=== PATIENT | female | born 2000 | race Caucasian/White ===

== ENCOUNTER → 2020-09-18 11:33 | Outpatient (CLI) | payer OTHER, SELFPAY ==
[2020-09-18 12:20] LABS: Add Manual Diff / Slide Review NO; Basophils Absolute Auto 0 /uL (0-100); Basophils Percent Auto 0.5 % (0-2); Eosinophils Absolute Auto 100 /uL (0-450); Eosinophils Percent Auto 1.6 % (2-4); Hematocrit 40.9 % (36-46); Hemoglobin 13.7 g/dL (12.0-16.0); Lymphocytes Absolute Auto 1600 /uL (1100-4500); Lymphocytes Percent Auto 27.9 % (25-40); Mean Corpuscular HGB Conc 33.6 % (30-36); Mean Corpuscular Hemoglobin 30.9 PG (26-34); Monocytes Absolute Auto 400 /uL (0-900); Monocytes Percent Auto 7.8 % (3-14); Neutrophils Absolute Auto 3500 /uL (1500-7000); Neutrophils Percent Auto 62.2 % (50-75); Platelet Count 193 X10^3/uL (150-400); Red Blood Cell Count 4.45 X10^6/uL (4.0-5.2); Red Cell Distribution Width 13.1 % (11.6-14.8); White Blood Cell Count 5.6 X10^3/uL (4.5-11.0)
[2020-09-18 12:27] LABS: Hemoglobin A1C% w Est Avg Glu 4.9 % (4.0-6.0)
[2020-09-18 12:35] LABS: Alanine Aminotransferase 18 IU/L (<35); Albumin 3.8 g/dL (3.5-5.0); Albumin Globulin Ratio 1.3 (1.0-2.8); Alkaline Phosphatase 51 U/L (38-126); Aspartate Aminotransferase 25 IU/L (14-36); BUN Creatinine Ratio 14.3 (6-22); Bilirubin Total 0.3 mg/dL (0.2-1.3); Blood Urea Nitrogen 10 mg/dL (7-17); Calcium 8.8 mg/dL (8.4-10.2); Carbon Dioxide 24 mmol/L (22-32); Chloride 107 mmol/L (98-107); Estimated Glomerular Filt Rate > 60.0 mL/min (>60); Glucose 90 mg/dL (70-100); HEMOLYSIS < 15 (0-50); Potassium 3.9 mmol/L (3.4-5.1); Sodium 138 mmol/L (137-145); Total Protein 6.8 g/dL (6.3-8.2)
[2020-09-18 12:50] LABS: Free T4, Direct Thyroxine 1.02 ng/dL (0.78-2.19)
[2020-09-18 13:04] LABS: Thyroid Stimulating Hormone 0.637 uIU/mL (0.47-4.68)
== END ==
PROVIDERS: PCP Registered Nurse; Referring Provider Registered Nurse; Visit Provider Registered Nurse
DX: R53.83 Other fatigue (principal); Z83.3 Family history of diabetes mellitus
CPT/HCPCS: 36415; 80053; 83036; 84439; 84443; 85025

== ENCOUNTER → 2022-05-23 06:21 | Outpatient (ROUT) | payer OTHER, SELFPAY ==
[2022-05-23 06:29] LABS: Hematocrit 40.4 % (36-46); Hemoglobin 13.7 g/dL (12.0-16.0); Mean Corpuscular HGB Conc 33.9 % (30-36); Mean Corpuscular Hemoglobin 29.8 PG (26-34); Mean Corpuscular Volume 87.9 fL (80-100); Platelet Count 257 X10^3/uL (150-400); Red Cell Distribution Width 13.5 % (11.6-14.8); White Blood Cell Count 9.7 X10^3/uL (4.5-11.0)
[2022-05-23 06:48] LABS: Alanine Aminotransferase 15 IU/L (<35); Albumin 4.5 g/dL (3.5-5.0); Albumin Globulin Ratio 1.2 (1.0-2.8); Alkaline Phosphatase 65 U/L (38-126); Aspartate Aminotransferase 23 IU/L (14-36); BUN Creatinine Ratio 17.9 (6-22); Bilirubin Total 0.4 mg/dL (0.2-1.3); Blood Urea Nitrogen 14 mg/dL (7-17); Carbon Dioxide 24 mmol/L (22-32); Chloride 103 mmol/L (98-107); Cholesterol 141 mg/dL (140-199); Estimated Glomerular Filt Rate > 60 mL/min (>60); Globulin 3.7 g/dL (1.7-4.1); Glucose 94 mg/dL (70-100); HDL Cholesterol 47 mg/dL (40-60); HEMOLYSIS < 15 (0-50); LDL Cholesterol Calculated 79 mg/dL (<100); Potassium 3.7 mmol/L (3.4-5.1); Sodium 139 mmol/L (137-145); Total Protein 8.2 g/dL (6.3-8.2); Triglycerides 74 mg/dL (35-150)
[2022-05-23 07:19] LABS: TSH w/ Reflex to FT4 1.37 uIU/mL (0.47-4.68)
== END ==
PROVIDERS: PCP Registered Nurse Diabetes Educator; Visit Provider Registered Nurse Diabetes Educator
DX: Z00.00 Encounter for general adult medical examination without abnormal findings (principal)
CPT/HCPCS: 80053; 80061; 84443; 85027

== ENCOUNTER → 2022-12-22 09:12 | Outpatient (CLI) | payer OTHER, SELFPAY ==
[2022-12-22 12:59] LABS: Urine N gonorrhoeae NOT DETECTED
[2022-12-22 13:36] LABS: Urine Chlamydia NOT DETECTED
== END ==
PROVIDERS: PCP Registered Nurse Diabetes Educator; Visit Provider Specialist
DX: Z34.01 Encounter for supervision of normal first pregnancy, first trimester (principal)
CPT/HCPCS: 87491; 87591

== ENCOUNTER → 2023-01-19 10:05 | Outpatient (CLI) | payer OTHER, SELFPAY ==
[2023-01-19 10:28] LABS: Specimen Label Y
[2023-01-19 11:06] LABS: Add Manual Diff / Slide Review NO; Basophils Absolute Auto 0 /uL (0-100); Basophils Percent Auto 0.1 % (0-2); Eosinophils Absolute Auto 0 /uL (0-450); Eosinophils Percent Auto 0.5 % (2-4); Hematocrit 40.1 % (36-46); Hemoglobin 13.9 g/dL (12.0-16.0); Lymphocytes Absolute Auto 1100 /uL (1100-4500); Lymphocytes Percent Auto 12.5 % (25-40); Mean Corpuscular HGB Conc 34.6 % (30-36); Mean Corpuscular Hemoglobin 31.1 PG (26-34); Mean Corpuscular Volume 89.9 fL (80-100); Monocytes Absolute Auto 800 /uL (0-900); Monocytes Percent Auto 9.2 % (3-14); Neutrophils Absolute Auto 7100 /uL (1500-7000); Neutrophils Percent Auto 77.7 % (50-75); Platelet Count 172 X10^3/uL (150-400); Red Blood Cell Count 4.46 X10^6/uL (4.0-5.2); White Blood Cell Count 9.1 X10^3/uL (4.5-11.0)
[2023-01-19 11:51] LABS: Hepatitis B Surface Antigen NEGATIVE s/c (NEGATIVE); Rubella Antibody IgG 5.1 IU/mL (>15)
[2023-01-19 12:09] LABS: HIV 1 & 2 Ab/Ag 4th Gen Combo NEGATIVE (NEGATIVE); Hep C Virus Ab w/Reflex Quant NEGATIVE s/c (NEGATIVE)
[2023-01-20 06:20] LABS: RPR Screen Non Reactive (Non Reactive)
[2023-01-20 08:41] LABS: Varicella IgG Antibody 819 index (Immune >165)
== END ==
PROVIDERS: PCP Registered Nurse Diabetes Educator; Referring Provider Specialist; Visit Provider Specialist
DX: Z34.01 Encounter for supervision of normal first pregnancy, first trimester (principal)
CPT/HCPCS: 36415; 80055; 86787; 86803; 86850; 86900; 86901; 87389

== ENCOUNTER → 2023-01-24 03:56 | Outpatient (ROUT) | payer OTHER, SELFPAY | PROVIDERS: PCP Registered Nurse Diabetes Educator; Visit Provider Registered Nurse Diabetes Educator | DX: Z34.01 Encounter for supervision of normal first pregnancy, first trimester (principal) | CPT/HCPCS: 87086 ==

== ENCOUNTER → 2023-03-16 06:55 | Outpatient (CLI) | payer OTHER, SELFPAY ==
--- NOTE | 2023-03-16 06:56 | DI.US.S_ITS ---
PROCEDURE: US OB >= 14 WEEKS FETUS INDICATIONS: anatomy screening OUTSIDE/PRIOR DATING DATA: Last menstrual period (LMP): 10/19/2022. LMP-based estimated date of delivery (VITALIY): 07/26/2023. First dating scan (date and location): 03/16/2023. Estimated date of delivery (VITALIY) from first dating scan: 07/26/2023. TECHNIQUE: Real-time scanning was performed of the fetus, with image documentation and biometric measurements. COMPARISON: None. FINDINGS: General: A single living intrauterine gestation is present. Presentation: Vertex. Placenta: Placental position is posterior/fundal , without previa. Amniotic fluid index: 13.4 cm, normal range is 5-24 cm. Single deepest vertical pocket is 4.4 cm. heart rate: 149 beats per minute. Maternal cervical canal: 4.4 cm long. Normal lower limit is 2.5 cm. biometrics: Biparietal diameter: 5.2 cm. 21 weeks 6 days Head circumference: 18.9 cm. 21 weeks 2 days Abdominal circumference: 16.7 cm. 21 weeks 5 days Femur length: 3.2 cm. 19 weeks 6 days Clinically estimated gestational age: 21 weeks 1 day Composite gestational age from present scan: 21 weeks 1 day Estimated weight and percentile: 392 g. 37th percentile. Anatomic survey: Neuro: Ventricles are non-dilated at less than 10 mm. Cisterna magna is normal at 3-11 mm. Cerebellum is normal in size and morphology. Nuchal skin fold: Normal at less than 6 mm between 14-21 weeks gestational age. Face: Nose and lips, facial profile are normal. Spine: No evidence for spina bifida. Heart: 4-chambered heart is present, with normal ventricular outflow tracts. Diaphragm: Diaphragm is intact. Stomach: Left-sided stomach is present. Kidneys: No hydronephrosis. Normal is less than 5 mm in 2nd trimester, less than 7 mm in 3rd trimester. Cord: 3-vessel cord has orthotopic insertion. Bladder: Normal in size. Extremities: All 4 extremities identified. IMPRESSION: 1. Single living intrauterine with congruent size/dates and a composite gestational age of 21 weeks 1 day. 2. anatomy is normal. We strive to produce accurate, complete, and clear reports of imaging services. To assist us in improving patient care, this report was composed using standard report templates and voice recognition software. Therefore, it may contain abnormal punctuation, insertions and/or omissions. Occasional wrong-word or sound-alike substitutions may occur. Though we review the report and make efforts to correct it, we do recommend that the report be read carefully in proper context to recognize any text inaccuracies. Dictated by: Nate Peraza M.D. on 03/16/2023 at 8:51 Approved by: Nate Peraza M.D. on 03/16/2023 at 8:54
== END ==
PROVIDERS: PCP Registered Nurse Diabetes Educator; Referring Provider Student in an Organized Health Care Education/Training Program; Visit Provider Student in an Organized Health Care Education/Training Program
DX: Z34.92 Encounter for supervision of normal pregnancy, unspecified, second trimester (principal); Z3A.21 21 weeks gestation of pregnancy
CPT/HCPCS: 76811

== ENCOUNTER → 2023-04-17 14:23 | Outpatient (CLI) | payer OTHER, SELFPAY | PROVIDERS: PCP Registered Nurse Diabetes Educator; Referring Provider Family Medicine; Visit Provider Family Medicine | DX: Z23 Encounter for immunization (principal) | CPT/HCPCS: 90471; 90686 ==

== ENCOUNTER → 2023-05-04 07:56 | Outpatient (CLI) | payer OTHER, SELFPAY ==
[2023-05-04 09:20] LABS: Hematocrit 35.5 % (36-46); Hemoglobin 12.4 g/dL (12.0-16.0)
[2023-05-04 09:53] LABS: GTT (PREG) 1 Hour PP 50gm Dose 156 mg/dL (76-139)
== END ==
PROVIDERS: PCP Registered Nurse Diabetes Educator; Referring Provider Student in an Organized Health Care Education/Training Program; Visit Provider Student in an Organized Health Care Education/Training Program
DX: Z34.02 Encounter for supervision of normal first pregnancy, second trimester (principal); Z3A.24 24 weeks gestation of pregnancy
CPT/HCPCS: 82950; 85014; 85018

== ENCOUNTER → 2023-05-12 08:02 | Outpatient (CLI) | payer OTHER, SELFPAY ==
[2023-05-12 09:35] LABS: Glucose Fasting 78 mg/dL (70-100)
[2023-05-12 10:27] LABS: Glucose 1 Hour 141 mg/dL (70-170)
[2023-05-12 11:03] LABS: Glucose 2 Hour 140 mg/dL (70-140)
[2023-05-12 11:25] LABS: Glucose Tol Interpretation INTERPRETATION
[2023-05-12 12:42] LABS: Glucose 3 Hour 121 mg/dL (70-115)
== END ==
PROVIDERS: PCP Registered Nurse Diabetes Educator; Referring Provider Student in an Organized Health Care Education/Training Program; Visit Provider Student in an Organized Health Care Education/Training Program
DX: O99.810 Abnormal glucose complicating pregnancy (principal)
CPT/HCPCS: 36415; 82951; 82952

== ENCOUNTER 2023-06-15 17:01 | Outpatient (CLI) | payer OTHER, SELFPAY | END 2023-06-15 17:45 | disposition home or self-care (01) | LOC: LABOR 17:21 → OB 06-20 06:19 | PROVIDERS: PCP Registered Nurse Diabetes Educator; Referring Provider Student in an Organized Health Care Education/Training Program; Visit Provider Student in an Organized Health Care Education/Training Program | DX: O36.8130 Decreased fetal movements, third trimester, not applicable or unspecified (principal); Z3A.33 33 weeks gestation of pregnancy | CPT/HCPCS: 59025; G0378; G0379 ==

== ENCOUNTER → 2023-06-23 07:22 | Outpatient (CLI) | payer OTHER, SELFPAY ==
--- NOTE | 2023-06-23 07:22 | DI.US.S_ITS ---
PROCEDURE: US OB LIMITED INDICATIONS: EFW OUTSIDE/PRIOR DATING DATA: Last menstrual period (LMP): 10/19/2022. LMP-based estimated date of delivery (VITALIY): 07/26/2023. First dating scan (date and location): 03 16 2023. Estimated date of delivery (VITALIY) from first dating scan: 07/26/2023. The calculations are made using the working VITALIY of 07/26/2023 TECHNIQUE: Real-time scanning was performed of the fetus, with image documentation and biometric measurements. Endovaginal scanning: None COMPARISON: None. FINDINGS: General: A single living intrauterine gestation is present. Presentation: Vertex Placenta: Placental position is posterior , without previa. Amniotic fluid index: 17.7 cm, normal range is 5-24 cm. Single deepest vertical pocket is 5.6 cm. heart rate: 152 beats per minute. Maternal cervical canal: Nonvisualized biometrics: Biparietal diameter: 8.7 cm, 35 week 2 day Head circumference: 32.1 cm, 36 week 2 day Abdominal circumference: 30.8 cm, 34 week 5 day Femur length: 6.8 cm, 35 week 1 day Clinically estimated gestational age: 35 week 2 day Composite gestational age from present scan: 35 week 3 day Estimated weight and percentile: 2575 g, 40 percentile Other: Not applicable. IMPRESSION: Single live intrauterine consistent with a 35 week 3 day gestation by current ultrasound Approved by: John Munguia M.D. on 06/23/2023 at 17:03
== END ==
LOC: US 07:22
PROVIDERS: PCP Registered Nurse Diabetes Educator; Referring Provider Student in an Organized Health Care Education/Training Program; Visit Provider Student in an Organized Health Care Education/Training Program
DX: Z03.74 Encounter for suspected problem with fetal growth ruled out (principal); Z3A.35 35 weeks gestation of pregnancy
CPT/HCPCS: 76815

== ENCOUNTER → 2023-06-30 10:40 | Outpatient (CLI) | payer OTHER, SELFPAY ==
[2023-07-01 14:20] LABS: Strep Grp B PCR NEG for Grp B Strep
== END ==
PROVIDERS: PCP Registered Nurse Diabetes Educator; Visit Provider Family Medicine
DX: Z34.02 Encounter for supervision of normal first pregnancy, second trimester (principal)
CPT/HCPCS: 85025; 86850; 86900; 86901; 87653

== ENCOUNTER 2023-07-30 19:41 | Inpatient (IN) | payer OTHER, SELFPAY ==
[2023-07-30 21:08] VITALS: BP 97/67
[2023-07-30] MEDS: miSOPROStoL 25 MCG TABLET VAG (21:15)
[2023-07-30 21:28] LABS: Add Manual Diff / Slide Review NO; Basophils Absolute Auto 0 /uL (0-100); Basophils Percent Auto 0.3 % (0-2); Eosinophils Absolute Auto 0 /uL (0-450); Eosinophils Percent Auto 0.5 % (2-4); Hematocrit 37.7 % (36-46); Hemoglobin 12.6 g/dL (12.0-16.0); Lymphocytes Absolute Auto 2100 /uL (1100-4500); Lymphocytes Percent Auto 21.4 % (25-40); Mean Corpuscular HGB Conc 33.4 % (30-36); Mean Corpuscular Hemoglobin 29.3 PG (26-34); Mean Corpuscular Volume 87.8 fL (80-100); Monocytes Absolute Auto 800 /uL (0-900); Monocytes Percent Auto 7.8 % (3-14); Neutrophils Absolute Auto 6700 /uL (1500-7000); Platelet Count 168 X10^3/uL (150-400); Red Blood Cell Count 4.29 X10^6/uL (4.0-5.2); Red Cell Distribution Width 14.4 % (11.6-14.8); White Blood Cell Count 9.6 X10^3/uL (4.5-11.0)
[2023-07-31] MEDS: miSOPROStoL 25 MCG TABLET 50 MCG PO (01:14)
[2023-07-31] MEDS: ONDANSETRON 4 MG/2 ML INJ IV (07:47)
--- NOTE | 2023-07-31 08:55 | PM.AN.REGBLK ---
Regional Block Pre-procedure Procedure: Continuous Lumbar Epidural for L&D Attending OB provider: Emma Valdez PMH/ROS narrative: term IOL, no obstetric complications. PMH: mild intermittent asthma (exercise induced). ASA Class: II Labs: Hct 37.7 % (36-46) 07/30/23 20:55 Plt Count 168 X10^3/uL (150-400) 07/30/23 20:55 Medications: Current Medications Generic Name Dose Route Start Last Admin Trade Name Freq PRN Reason Stop Dose Admin Calcium Carbonate 1,000 mg 07/30/23 20:46 Calcium Carbonate 500 Mg Tab PO Q4HR PRN Dyspepsia Carboprost Tromethamine 250 mcg 07/30/23 20:46 Carboprost 250 Mcg/Ml Ampul IM Q90M PRN Bleeding Diphenhydramine HCl 25 mg 07/31/23 07:15 Diphenhydramine 50 Mg/Ml Vial IV Q10M PRN Pruritis Fentanyl 50 mcg 07/30/23 20:46 Fentanyl 100 Mcg/2 Ml Inj IV Q1H PRN Pain, Moderate (4-6) Oxytocin/Lactated Ringer's 30 unit in 500 mls @ 200 mls/hr 07/30/23 20:46 Oxytocin Premix IV CONT PRN Bleeding Protocol Tranexamic Acid 1,000 mg/ 100 mls @ 200 mls/hr 07/30/23 20:46 Sodium Chloride IV NOW PRN Bleeding Lactated Ringer's 1,000 mls @ 100 mls/hr 07/30/23 21:00 Lactated Ringers IV CONT JACEY FENT 2MCG/ML BUPIV 0.125% EPI 200 mcg in 100 mls @ 6 mls/hr 07/31/23 07:15 Fentanyl/Bupiv/Ns 2mcg/Ml - 0.125% EPIDURAL CONT JACEY Lidocaine HCl 20 ml 07/30/23 20:46 Lidocaine 1% 20 Ml INJ INTRA-OP PRN Post Delivery Methylergonovine Maleate 0.2 mg 07/30/23 20:46 Methylergonovine 0.2 Mg Tablet PO Q6HR PRN Heavy Bleeding Methylergonovine Maleate 0.2 mg 07/30/23 20:46 Methylergonovine 0.2 Mg/Ml Vial IM NOW PRN Bleeding Misoprostol 800 mcg 07/30/23 20:46 Misoprostol 200 Mcg Tablet NC NOW PRN Bleeding Misoprostol 400 mcg 07/30/23 20:46 Misoprostol 200 Mcg Tablet SL NOW PRN Bleeding Misoprostol 50 mcg 07/31/23 01:15 07/31/23 01:14 Misoprostol 25 Mcg Tablet PO 50 mcg Q6H JACEY Administration Nalbuphine HCl 2.5 mg 07/31/23 07:15 Nalbuphine 20 Mg/Ml Ampul IV Q10M PRN Pruritis Naloxone HCl 0.2 mg 07/30/23 20:46 Naloxone 0.4 Mg/Ml Vial IV Q2MIN PRN Opiate Reversal Ondansetron HCl 4 mg 07/30/23 20:46 07/31/23 07:47 Ondansetron 4 Mg/2 Ml Inj IV 4 mg Q4HR PRN Administration Nausea And Vomiting Oxytocin 10 unit 07/30/23 20:46 Oxytocin 10 Unit/Ml Vial IM NOW PRN Bleeding Allergies: Allergies Allergy/AdvReac Type Severity Reaction Status Date / Time No Known Drug Allergies Allergy Verified 07/28/23 12:24 Procedure Insertion date: 07/31/23 Insertion time: 07:30 Prep/Local: betadine x3 and 1% lidocaine Interspace: L2-3 Patient position: sitting Needle: 18 gauge Hustead (CSE: 27g Pencan through Hustead, clear CSF, 1mL 0.25% MPF bupiv.) Loss of resistance with: saline ROBERTO CARLOS at (cm): 4 Catheter placed at SKIN (cm): 10 Catheter in SPACE (cm): 6 Insertion: No CSF, No Blood, No Paresthesia with insertion, No Paresthesia with injection and No Test dose reaction Initial Medications TEST DOSE time: 07:30 TEST DOSE: 1.5% lidocaine with epinephrine 1:200k (mL): 3 BOLUS DOSE time: 07:38 BOLUS DOSE (mL): 3 BOLUS DOSE med: other (infusate) Infusion INFUSION: 0.125% bupivacaine and with fentanyl 2 mcg/mL Initial rate (mL/hr): 8 Subsequent interventions: PCEA@8+4 10:26 Post-procedure Anesthesia date START: 07/31/23 Anesthesia time START: 07:15 Anesthesia date END: 07/31/23 Anesthesia time END: 10:36 Post-procedure Anesthesia Assessment: Yes CV function: HR/BP stable, Yes Resp function: RR/sat/airway adequate, Yes Post-op hydration adequate, Yes Pain control adequate, Yes Nausea & vomiting absent, Yes Temperature > 36 C, Yes Mental status appropriate and No Anesthesia complications
[2023-07-31] MEDS: LIDOCAINE 1% 20 ML INJ (10:36)
[2023-07-31 12:58] VITALS: BP 107/66; PULSE 75; RESP 17; TEMP 36.4
[2023-07-31] MEDS: DERMOPLAST SPRAY 20% 60 ML 1 SPRAY TOP (13:25)
[2023-07-31] MEDS: ACETAMINOPHEN 325 MG TABLET 650 MG PO ×2 (14:47→20:38)
[2023-07-31] MEDS: IBUPROFEN 600 MG TABLET PO ×2 (14:48→20:37)
--- NOTE | 2023-07-31 14:51 | P.HPOB_ITS ---
OB HPI Date/Time Date of admission: 07/30/23 Date Patient Seen: 07/31/23 History of Present Condition Chief complaint: labor VITALIY Calculator 2 Estimated Delivery Date Method Current WG Current Estimate 07/30/23 LMP (Certain) 40w 1d Other Estimates 07/30/23 Ultrasound #1 40w 1d Estimated Gestational Age (weeks): 40w1d : 1 Para: 0 Narrative: 22yo at 40w1d here for elective IOL. No vaginal bleeding, contractions, LOF prior to induction. She is feeling her baby move regularly. Her has been uncomplicated. care: good care, initiated at week # (8) and pounds weight gain (6) Dating criteria OB: LMP confirmed by 1st trimester US Ultrasounds: normal 1st trimester US and normal mid trimester US Obstetrical complications: none Medical complications OB: none Preadmission Labs Last OB Lab Results: 2 Blood Type A Positive 07/30/23 20:55 Antibody Screen Negative 07/30/23 20:55 Hematocrit 37.7 % (36-46) 07/30/23 20:55 Hemoglobin 12.6 g/dL (12.0-16.0) 07/30/23 20:55 Hepatitis B Surface Antigen Negative s/c (NEGATIVE) 01/19/23 10 :13 Hepatitis C Antibody Negative s/c (NEGATIVE) 01/19/23 10:13 Rubella Antibody 5.1 IU/mL (>15) L 01/19/23 10:13 Varicella-Zoster IgG Antibody 819 index (Immune >165) 01/19/23 10:13 Glucose 1 Hour 156 mg/dL (76-139) H 05/04/23 07:59 Group B Streptococcus (PCR) Neg for grp b strep 06/30/23 10:40 Glucose Tolerance Testing: Fasting (78), 1 hr (141), 2 hr (140) and 3 hr (121) -: Chlamydia screen: negative, Gonorrhea screen: negative and Urine: negative Genetic Screens: Cell-free DNA: Normal External Labs -: Urine: negative Evaluation Evaluation Baseline heart rate: 125 Variability: Moderate (11-25) monitor accelerations: Present Monitor Decelerations: Absent Contraction Frequency (minutes): 3 Uterine Contraction Intensity: Strong/Firm Status: Category l Dilation (cm): 5 Effacement (%): 90 station: -1 [facility] Medical History (Updated 07/21/23 @ 09:11 by Emma Valdez MD) Mild intermittent asthma Fatigue Surgical History Anesthesia [place] teeth removed (~04/2017) Family History (Updated 12/08/22 @ 08:08 by Khushbu Osborne, AVEL) Father Hypertension Diabetes mellitus Brother Hypertension Hyperlipidemia Grandmother Diane's disease Grandmother Diabetes mellitus Grandfather Skin cancer Grandmother Breast cancer Social History (Updated 05/18/22 @ 15:57 by LORENA Adler) marital status: number of children: 0 household members: spouse lives independently: Yes caregiver/support person: No housing: condominium pets and animals: Yes (cat, managing litter box) education level: college (associate's degree) 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) current occupational exposures/hazards: Yes special andrew needs: No travel history: recent (domestic only) seatbelt use: always water heater temp set < 120 deg: Yes working smoke detector in home: Yes fire extinguisher in home: Yes carbon monox detector in home: Yes firearms in home: Yes firearms unloaded and locked: Yes do you feel safe at home: Yes Smoking Status: Never smoker second hand exposure: No alcohol intake: former (very occasionally when not ) substance use type: does not use during the past year weight has: remained stable well-balanced diet: about half the time daily servings fruits/ve-4 caffeine: Yes (aware of 200mg limit) Type(s) of exercise: walking additional social history: Pt would like to clarify that she only smoked for about 2 months socially only; NO other smoking history Meds Home Medications and Allergies Home Medications Medication Instructions Recorded Confirmed Type albuterol sulfate 90 mcg/actuation 2 puff inhalation Q4-6H PRN 09/18/20 07/28/23 Rx aerosol inhaler shortness of breath or wheezing #8.5 grams choline bitartrate 300 mg mg PO 12/08/22 07/28/23 History tablet,extended release vitamin-ferrous sulfate tab PO 12/08/22 07/28/23 History 27 mg iron-folic acid 0.8 mg tablet ondansetron 4 mg disintegrating 4 mg PO Q6H PRN nausea and 02/13/23 07/28/23 Rx tablet vomiting #30 tabs Allergies Allergy/AdvReac Type Severity Reaction Status Date / Time No Known Drug Allergies Allergy Verified 07/28/23 12:24 OB Exam Resp Effort & Inspection: normal respiratory effort Auscultation: clear to auscultation bilaterally Cardio Rate: regular rate Rhythm: regular rhythm Heart Sounds: S1 normal, S2 normal and no murmurs GI Inspection: non-distended Palpation: Yes soft and No tender Presentation: vertex Objective Labs 07/30/23 20:55 Labs: Laboratory Results - last 24 hr 07/30/23 20:55 WBC 9.6 RBC 4.29 Hgb 12.6 Hct 37.7 MCV 87.8 MCH 29.3 MCHC 33.4 RDW 14.4 Plt Count 168 Neut % (Auto) 70.0 Lymph % (Auto) 21.4 L Weber % (Auto) 7.8 Eos % (Auto) 0.5 L Baso % (Auto) 0.3 Neut # (Auto) 6700 Lymph # (Auto) 2100 Weber # (Auto) 800 Eos # (Auto) 0 Baso # (Auto) 0 Blood Type A Positive Antibody Screen Negative Assessment and Plan Assessment and Plan Assessment and Plan narrative: 22yo at 40w1d here for elective IOL. No complications with . GBS negative, Rh positive. Pt received 2 doses of cytotec overnight, now with regular painful contractions. After informed consent, AROM performed with clear fluid present. - Expectant management, anticipate - FHT reassuring - GBS negative, no prophylaxis needed - Epidural in place for pain control
--- NOTE | 2023-07-31 14:51 | PM.OBPRVD ---
Labor & Delivery Delivery date: 07/31/23 Intrapartal Events: None Cervical ripening method: per misoprostal protocol Induction method: AROM Delivery monitor: external FHT and external uterine Route of delivery: Episiotomy description: None L&D Laceration Description: Perineal - 2nd Degree and Labial Quantitative Blood Loss: 437 Anesthesia Type: Epidural Complications: None Narrative: PROCEDURE: at 40w0d presented for elective IOL and was admitted to Labor and Delivery. The pt received 2 doses of cytotec overnight. AROM occured at 7:54 with clear fluid. The patient progressed through the 1st stage over 3 hours. Pain was controlled with an epidural. The patient progressed through the 2nd stage over 43 minutes and delivered a viable male with APGARs 8/9 at 10:26 via without complications. The cord was cut and clamped after it stopped pulsating. The placenta delivered with gentle cord traction, and appeared complete. The perineum and vagina were inspected with 2nd degree perineal laceration repaired with 2-O Vicryl, and right labial laceration repaired with 3-O Chromic. Needle and sponge counts were correct.? The vagina was inspected and no items were left in situ. Jose was doing well with Leobardo, her and her at bedside. PREPROCEDURE DIAGNOSIS: Intrauterine at 40w1d GBS negative RH positive POSTPROCEDURE DIAGNOSIS: Intrauterine at 40w1d, delivered Same as preprocedure Baby 1: Infant gender: Male Presentation: vertex Position: Left Occiput Anterior Placenta delivery description: Spontaneous Cord Vessel Description: 3 Vessels score (1 min): 8 score (5 min): 9 weight: 7 lb 13.54 oz Plan for aftercare: Routine care
[2023-08-01] MEDS: IBUPROFEN 600 MG TABLET PO ×2 (02:41→08:32)
[2023-08-01] MEDS: ACETAMINOPHEN 325 MG TABLET 650 MG PO ×2 (02:42→08:32)
[2023-08-01] MEDS: DOCUSATE 100 MG CAPSULE PO (08:32)
--- NOTE | 2023-08-01 09:56 | PM.OBDS.1 ---
Discharge Providers Provider Date of admission: 07/30/23 19:41 Discharge Date: 08/01/23 Primary care physician: LORENA Adler Consults: 07/30/23 20:46 Consult to Anesthesiology Urgent Comment: Consulting Provider: Sarmad Ervin Reason for consultation: Epidural 08/01/23 12:00 Consult to Airline Reservation Agent Routine Comment: Discharge provider: Emma Valdez MD Summary Hospital Course Date Patient Seen: 08/01/23 Diagnoses: Intrauterine at 40w1d GBS negative RH positive Hospital Course: The pt presented for elective IOL. She received cytotec. The pt had an epidural for pain control. AROM was performed with clear fluid present. The pt progressed to complete and had an of a viable baby boy without complications. A 2nd degree perineal and right labial laceration were repaired. , there were no complications. At the time of discharge she was voiding, ambulating, and passing flatus without difficulty. Her lochia was decreasing appropriately. Her pain was well controlled. She was with good latch. She will f/u in 6 weeks for check. Peripartum Data Delivery Method: Natural Vaginal Laceration Description: Perineal - 2nd Degree and Labial Episiotomy description: None complications: none [place] 1: Gender: Male Disposition of : home Status at Discharge Cognitive/behavioral status at discharge: oriented Functional status at discharge: independent ambulation Overall status at discharge: patient is progressing back to baseline Time Spent with Patient Time attestation: Total time spent providing and/or coordinating discharge services: Objective Labs 07/30/23 20:55 Exam Narrative Exam Narrative: Gen: NAD, sitting comfortably in bed, appears well CV: RRR, no murmurs Resp: clear to auscultation bilaterally Abd: soft, appropriately tender, fundus firm and below the umbilicus, nondistended Ext: no edema Discharge Plan Discharge Plan Patient Disposition: Home Discharge orders & Medications Prescriptions: New acetaminophen 325 mg Tablet 650 mg PO Q6HR PRN (Reason: Pain, Mild (1-3)) Qty: 60 0RF docusate sodium 100 mg Capsule 100 mg PO DAILY Qty: 30 0RF ibuprofen 600 mg Tablet 600 mg PO Q6HR PRN (Reason: Pain, Mild (1-3)) Qty: 60 0RF Continued albuterol sulfate 90 mcg/actuation HFA aerosol inhaler 2 puff inhalation Q4-6H PRN (Reason: shortness of breath or wheezing) Qty: 8.5 3RF vit-ferrous sulfat-FA 27 mg iron- 0.8 mg tablet PO choline bitartrate 300 mg tablet extended release PO Discontinued ondansetron 4 mg tablet,disintegrating 4 mg PO Q6H PRN (Reason: nausea and vomiting) Qty: 30 3RF Follow up/Referrals: Emma Valdez MD [Physician] - (Appointment with on at 1:30pm) Brandon Bhatia ARNP [Primary Care Provider] - () Diet/Activity/Treatments Diet: Diet as Tolerated and Regular Skin/Wound/Dressing Care Report to your healthcare provider any signs of infection, such as:: chills, fever, increased pain and unusual drainage Visit Report/Discharge Packet Instructions: DI for Labor and Delivery, Vaginal Stand Alone Forms: Patient Portal/API, Stroke Signs & Symptoms Discharge Data Primary Care Provider: Brandon Bhatia Discharges patient from system. Discharge Date/Time: 08/01/23 13:19
[2023-08-01] MEDS: MEASLES,MUMPS,RUBELLA VACC/PF 0.5 ML VIAL SUBCUT (11:28)
== END 2023-08-01 13:19 | disposition home or self-care (01) | DRG 807 ==
PROVIDERS: Admitting Provider Family Medicine; PCP Registered Nurse Diabetes Educator; Referring Provider Family Medicine; Visit Provider Family Medicine
DX: O70.1 Second degree perineal laceration during delivery (principal); Z37.0 Single live birth; Z3A.40 40 weeks gestation of pregnancy
CPT/HCPCS: 36415; 59050; 59200; 59400; 59409; 85025; 86850; 86900; 86901; G0379; J2405; J2590

== ENCOUNTER → 2024-03-01 | Outpatient (CLI) | payer OTHER, SELFPAY | PROVIDERS: PCP Registered Nurse Diabetes Educator; Referring Provider Internal Medicine; Visit Provider Internal Medicine | DX: Z23 Encounter for immunization (principal) | CPT/HCPCS: 90471; 90656 ==